=== PATIENT | male | born 1995 | race Caucasian/White ===

== ENCOUNTER 2018-02-12 19:27 | Emergency (ER) | payer BC ==
[2018-02-12 20:31] VITALS: TEMP 99.1
[2018-02-12] MEDS ORDERED: ALUMINUM/MAGNESIUM 30 ML SUS ONE (20:59)
[2018-02-12] MEDS ORDERED: LIDOCAINE HCL 2% (VISCOUS) 20 ML SOL ONE (21:00)
[2018-02-12] MEDS: ALUMINUM/MAGNESIUM 30 ML SUS PO ONE (21:03)
[2018-02-12] MEDS: LIDOCAINE HCL 2% (VISCOUS) 20 ML SOL MT ONE (21:03)
[2018-02-13 00:55] VITALS: BP 121/74; PULSE 99; RESP 23; O2SAT 95
== END 2018-02-12 22:18 | disposition home or self-care (01) ==
LOC: MERGE 19:27 → EDBD 19:27 → ED 19:27
DX: K21.9 Gastro-esophageal reflux disease without esophagitis (principal)
CPT/HCPCS: 71045; 93005; 99283; 99284; A9270-GY